=== PATIENT | male | born 1990 | race Caucasian/White ===

== ENCOUNTER → 2024-09-24 | Outpatient (CLI) | payer OTHER ==
--- NOTE | 2024-09-24 10:59 | US ---
EXAMINATION TYPE: US abdomen complete DATE OF EXAM: 09/24/2024 COMPARISON: NONE CLINICAL INDICATION: Male, 34 years old with history of B18.2 CHRON VIRAL HEP C; TECHNIQUE: Grayscale and color Doppler imaging of the abdomen was performed. FINDINGS: EXAM MEASUREMENTS: Liver Length: 15.6 cm Gallbladder Wall: 0.2 cm CBD: 0.5 cm, color Doppler imaging was utilized to isolate the common bile duct for measurement. Spleen: 12.3 cm Right Kidney: 11.1x5.8x6.5 cm Left Kidney: 12.1x5.9x5.5 cm WEATHER ANCHOR NOTES: very limited scan due to pt body habitus & overlying bowel Pancreas: Obscured by bowel gas Liver: Increased attenuation, decreased visualization of vessels suggestive of fatty infiltrate dif ficult to penetrate, intercostal views used Gallbladder: slightly obscured by bowel/rib shadow Evidence for sonographic Bradley's sign: No CBD: wnl Spleen: wnl Right Kidney: wnl, No hydronephrosis, calculi or masses seen Left Kidney: wnl, No hydronephrosis, calculi or masses seen Upper IVC: prox: wnl, not well visualized Abd Aorta: wnl as best visualized Heterogeneous hyperechoic appearance of the liver. This limits evaluation for focal masses. No ascite s. IMPRESSION: Suboptimal study. Heterogeneous hyperechoic appearance of liver is consistent with known hepatocellular disease. No ascites or biliary dilatation noted. [facility], , 09/24/2024 10:56 AM
== END | disposition home or self-care (01) ==
LOC: RADUSWWP 10:21 → EDSEX 10:30
PROVIDERS: ATTEND Family Medicine
DX: B18.2 Chronic viral hepatitis C (principal)
CPT/HCPCS: 76700

== ENCOUNTER → 2024-10-11 | Outpatient (CLI) | payer OTHER ==
[2024-10-11 15:17] LABS: Basophils # (A) 0.05 X 10*3/uL (0.00-0.10); Basophils % (A) 0.6 %; Eosinophils # (A) 0.05 X 10*3/uL (0.04-0.35); Eosinophils % (A) 0.6 %; HCT 46.4 % (39.6-50.0); HGB 16.3 g/dL (13.0-17.0); Lymphocytes # (A) 1.63 X 10*3/uL (0.90-5.00); Lymphocytes % (A) 20.6 %; MCH 32.2 pg (27.0-32.0); MCHC 35.1 g/dL (32.0-37.0); MCV 91.7 FL (80.0-97.0); Mean Platelet Volume 9.3 FL (9.5-12.2); Monocytes # (A) 0.64 X 10*3/uL (0.20-1.00); Monocytes % (A) 8.1 %; NRBC Per 100 WBC 0 X 10*3/uL (0.00-0.01); Neutrophils # (A) 5.51 X 10*3/uL (1.80-7.70); Neutrophils % (A) 69.7 %; Platelet Count 189 X 10*3/uL (140-440); RBC 5.06 X 10*6/uL (4.40-5.60); RDW 12.4 % (11.5-14.5); WBC 7.91 X 10*3/uL (4.50-10.00)
[2024-10-11 15:35] LABS: BUN/Creat Ratio 17.11 Ratio (12.00-20.00); Blood Urea Nitrogen 15.4 mg/dL (9.0-27.0); Chloride 104 mmol/L (96-109); Glucose 110 mg/dL (70-110); Potassium 4.4 mmol/L (3.5-5.5); Sodium 140 mmol/L (135-145)
[2024-10-11 15:36] LABS: ALT 129 U/L (10-49); AST 48 U/L (14-35); Albumin 4.6 g/dL (3.8-4.9); Albumin/Globulin Ratio 1.53 Ratio (1.60-3.17); Alkaline Phosphatase 66 U/L (41-126); Calcium 9.4 mg/dL (8.7-10.3); Carbon Dioxide 25.7 mmol/L (21.6-31.8); Total Bilirubin 0.5 mg/dL (0.3-1.2); Total Protein 7.6 g/dL (6.2-8.2)
[2024-10-11 15:47] LABS: Hepatitis B Surface Antigen Nonreactive (Nonreactive)
[2024-10-11 16:12] LABS: Hepatitis B Surface AB- Quant 3.5 mIU/mL
== END | disposition home or self-care (01) ==
LOC: LABWHC1 09:08
PROVIDERS: ATTEND Internal Medicine Gastroenterology
DX: B18.2 Chronic viral hepatitis C (principal)
CPT/HCPCS: 36415; 80053; 81596; 82105; 85025; 86706; 87340; 87522

== ENCOUNTER 2024-12-30 18:15 | Inpatient (IN) | payer OTHER ==
--- NOTE | 2024-12-30 19:25 | ED ---
General Adult HPI - General Source: patient Mode of arrival: wheelchair Limitations: no limitations <Eduardo Henson - Last Filed: 01/01/25 23:37> <Michelle Winn - Last Filed: 01/01/25 23:43> - General Chief complaint: Skin/Abscess/Foreign Body Stated complaint: Right Knee Issue Time Seen by Provider: 12/30/24 19:24 - History of Present Illness Initial comments: 34-year-old male presenting with chief complaint of redness pain and swelling to the right knee. 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 However he has been having worsening redness and swelling of the right knee ongoing for over 1 week now. He has had no drainage from the knee but there is a pustule forming. He has been on Bactrim for 4 days, the area of redness has improved, however the patient is still having very painful swelling over the kne e. No fever. (Eduardo Henson) - Related Data Home Medications Medication Instructions Recorded Confirmed Ibuprofen [Motrin Ib] 600 mg PO Q6H PRN 12/31/24 12/31/24 Sofosbuvir/Velpatasvir [Epclusa 1 tab PO DAILY@1200 12/31/24 12/31/24 400 mg-100 mg Tablet] Sulfamethox-Tmp 800-160Mg [Bactrim 1 tab PO Q12HR 12/31/24 12/31/24 DS 800-160 mg] Allergies Allergy/AdvReac Type Severity Reaction Status Date / Time No Known Allergies Allergy Verified 01/01/25 13:27 Review of Systems ROS Other: All systems not noted in ROS Statement are negative. <Eduardo Henson - Last Filed: 01/01/25 23:37> ROS Other: All systems not noted in ROS Statement are negative. <Michelle Winn - Last Filed: 01/01/25 23:43> ROS Statement: Those systems with pertinent positive or pertinent negative responses have been documented in the HPI. Past Medical History Additional Past Medical History / Comment(s): hep C History of Any Multi-Drug Resistant Organisms: None Reported Past Surgical History: Tonsillectomy Past Psychological History: No Psychological Hx Reported Smoking Status: Never smoker Past Alcohol Use History: Rare Past Drug Use History: Marijuana <Eduardo Henson - Last Filed: 01/01/25 23:37> General Exam Limitations: no limitations General appearance: alert, in no apparent distress Head exam: Present: atraumatic, normocephalic, normal inspection Eye exam: Present: normal appearance, EOMI Neck exam: Present: normal inspection. Absent: meningismus Respiratory exam: Absent: respiratory distress Cardiovascular Exam: Present: regular rate Right Knee exam: Present: tenderness, swelling, erythema, effusion. Absent: normal inspection Neurovascular tendon exam: Present: no vascular compromise Neurological exam: Present: alert, oriented X3 Psychiatric exam: Present: normal affect, normal mood <Eduardo Henson - Last Filed: 01/01/25 23:37> - General Exam Comments Initial Comments: Visual Physical Exam Vital signs reviewed General: Well-appearing, nontoxic, no acute distress. Head: Normocephalic, atraumatic Eyes: PERRLA, EOMI ENT: Airway patent Chest: Nonlabored breathing Skin: No visual rash, normal skin tone Neuro: Alert and oriented 3 Musculoskeletal: No gross abnormalities (Eduardo Henson) Course Vital Signs 12/30/24 12/30/24 12/31/24 18:24 22:55 02:09 Temperature 97.8 F 99.0 F Pulse Rate 148 H 108 H 91 Respiratory 18 18 18 Rate Blood Pressure 160/101 128/83 146/93 O2 Sat by Pulse 97 98 97 Oximetry 12/31/24 12/31/24 12/31/24 06:37 07:15 10:30 Temperature 98.5 F 97.3 F L Pulse Rate 78 87 96 Respiratory 18 18 16 Rate Blood Pressure 138/89 144/84 148/88 O2 Sat by Pulse 99 100 Oximetry Medical Decision Making - Lab Data Result diagrams: 01/01/25 06:17 01/01/25 06:17 <Eduardo Henson - Last Filed: 01/01/25 23:37> - Lab Data Result diagrams: 01/01/25 06:17 01/01/25 06:17 <Michelle Winn - Last Filed: 01/01/25 23:43> - Medical Decision Making I performed the quick note portion of this visit, electronically signed Eduardo Henson PA-C Was pt. sent in by a medical professional or institution (SONAM Ahuja, CERTIFIED INDOOR ENVIRONMENTALIST, urgent care, hospital, or usp...) When possible be specific @ -No Did you speak to anyone other than the patient for history (EMS, parent, family, police, friend...)? What history was obtained from this source @ -No Did you review nursing and triage notes (agree or disagree)? Why? @ -I reviewed and agree with nursing and triage notes Were old charts reviewed (outside hosp., previous admission, EMS record, old E KG, old radiological studies, urgent care reports/EKG's, usp records)? Report findings @ -No old charts were reviewed Differential Diagnosis (chest pain, altered mental status, abdominal pain women, abdominal pain men, vaginal bleeding, weakness, fever, dyspnea, syncope, headache, dizziness, GI bleed, back pain, seizure, CVA, palpatations, mental health, musculoskeletal)? @ -Differential Musculoskeletal Muscular strain, contusion, ligament sprain, fracture, arthritis, septic arthrit is, bursitis, cellulitis, muscle spasm, nerve compression, DVT, arterial occlusion, herpes zoster, electrolyte abnormality, tumor.... This is not meant to be in all inclusive list EKG interpreted by me (3pts min.). @ -As above X-rays interpreted by me (1pt min.). @ -X-ray shows no acute osseous pathology. Prepatellar/anterior knee soft tissue swelling. Trace suprapatellar joint effusion is also suggested CT interpreted by me (1pt min.). @ -None done U/S interpreted by me (1pt. min.). @ -None done What testing was considered but not performed or refused? (CT, X-rays, U/S, labs)? Why? @ -None What meds were considered but not given or refused? Why? @ -None Did you discuss the management of the patient with other professionals (professionals i.e. SONAM Ahuja, CERTIFIED INDOOR ENVIRONMENTALIST, lab, RT, psych nurse, social work instructor, senior android software engineer, teacher, front desk officer, disease case manager)? Give summary @ -[facility]oke [facility] from [facility], advises attempting to drain the area. If incision is successful the patient can follow-up in the office, if not he can be admitted to medicine with surgery on consult. Spoke with Dr. Crocker from [facility] who accepts admission Was smoking cessation discussed for >3mins.? @ -No Was critical care preformed (if so, how long)? @ -No Were there social determinants of health that impacted care today? How? (Homelessness, low income, unemployed, alcoholism, drug addiction, transportation, low edu. Level, literacy, decrease access to med. care, care home, rehab)? @ -No Was there de-escalation of care discussed even if they declined (Discuss DNR or withdrawal of care, Hospice)? DNR status @ -No What co-morbidities impacted this encounter? (DM, HTN, Smoking, COPD, CAD, Cancer, CVA, ARF, Chemo, Hep., AIDS, mental health diagnosis, sleep apnea, morbid obesity)? @ -None Was patient admitted / discharged? Hospital course, mention meds given and route, prescriptions, significant lab abnormalities, going to OR and other pertinent info. @ -34-year-old male presenting with chief complaint of increased redness swelling and tenderness to the right knee. Patient has a large septic prepat ellar bursitis. He has been on Bactrim for 4 days. There is a pustule over the knee. White count 17.29. CRP 19.8. Knee x-rays shows soft tissue prepatellar swelling. Patient is started on Unasyn and vancomycin. I spoke with Gail from [facility], inquired if I should attempt to drain and she confirmed yes. I did attempt to drain, was able to drain a small amount of pus but there was no significant relief. Culture was sent. Patient will be admitted for IV antibiotics and evaluation by orthopedics. Patient is agreeable with this plan. I discussed this case with my attending Dr. Winn Undiagnosed new problem with uncertain prognosis? @ -No Drug Therapy requiring intensive monitoring for toxicity (Heparin, Nitro, Insulin, Cardizem)? @ -No Were any procedures done? @ -No Diagnosis/symptom? @ -Septic prepatellar bursitis Acute, or Chronic, or Acute on Chronic? @ -Acute Uncomplicated (without systemic symptoms) or Complicated (systemic symptoms)? @ -Complicated Side effects of treatment? @ -No Exacerbation, Progression, or Severe Exacerbation? @ -No Poses a threat to life or bodily function? How? (Chest pain, [place], [place], pneumonia, PE, COPD, DKA, ARF, appy, cholecystitis, CVA, Diverticulitis, Homicidal, Suicidal, threat to staff... and all critical care pts) @ -Yes (Eduardo Henson) - Lab Data Lab Results 12/30/24 12/30/24 Range/Units 21:38 21:38 WBC 17.29 H (4.50-10.00) 10*3/uL RBC 4.54 (4.40-5.60) 10*6/uL Hgb 14.7 (13.0-17.0) g/dL Hct 40.5 (39.6-50.0) % MCV 89.2 (80.0-97.0) fL MCH 32.4 H (27.0-32.0) pg MCHC 36.3 (32.0-37.0) g/dL Plt Count 197 (140-440) 10*3/uL MPV 9.0 L (9.5-12.2) fL Immature Gran % (Auto) 0.5 % Neutrophils % 85.0 % Lymphocytes % 6.8 % Monocytes % 7.3 % Eosinophils % 0.1 % Basophils % 0.3 % Immature Gran # 0.09 H (0.00-0.04) 10*3/uL Neutrophils # 14.68 H (1.80-7.70) 10*3/uL Lymphocytes # 1.18 (0.90-5.00) 10*3/uL Monocytes # 1.27 H (0.20-1.00) 10*3/uL Eosinophils # 0.01 L (0.04-0.35) 10*3/uL Basophils # 0.06 (0.00-0.10) 10*3/uL ESR 58 H (0-15) mm/Hr Sodium 136 L (137-145) mmol/L Potassium 4.3 (3.5-5.1) mmol/L Chloride 98 (98-107) mmol/L Carbon Dioxide 24 (22-30) mmol/L Anion Gap 14 mmol/L BUN 14 (9-20) mg/dL Creatinine 0.77 (0.66-1.25) mg/dL Est GFR (CKD-EPI)AfAm >90 (>60 ml/min/1.73 sqM) Est GFR (CKD-EPI)NonAf >90 (>60 ml/min/1.73 sqM) Glucose 103 H (74-99) mg/dL Calcium 9.2 (8.4-10.2) mg/dL Total Bilirubin 0.9 (0.2-1.3) mg/dL AST 33 (17-59) U/L ALT 44 (4-49) U/L Alkaline Phosphatase 94 (38-126) U/L C-Reactive Protein 19.8 H (<1.0) mg/dL Total Protein 7.9 (6.3-8.2) g/dL Albumin 4.3 (3.5-5.0) g/dL Disposition Time of Disposition: 22:46 <Eduardo Henson - Last Filed: 01/01/25 23:37> <Michelle Winn - Last Filed: 01/01/25 23:43> Clinical Impression: Septic prepatellar bursitis Disposition: ADMITTED IP TO THIS HOSP Condition: Fair
[2024-12-30 21:44] LABS: Basophils # (A) 0.06 10*3/uL (0.00-0.10); Basophils % (A) 0.3 %; Eosinophils # (A) 0.01 10*3/uL (0.04-0.35); Eosinophils % (A) 0.1 %; HCT 40.5 % (39.6-50.0); HGB 14.7 g/dL (13.0-17.0); Lymphocytes # (A) 1.18 10*3/uL (0.90-5.00); Lymphocytes % (A) 6.8 %; MCH 32.4 pg (27.0-32.0); MCHC 36.3 g/dL (32.0-37.0); MCV 89.2 fL (80.0-97.0); Monocytes # (A) 1.27 10*3/uL (0.20-1.00); Monocytes % (A) 7.3 %; Neutrophils # (A) 14.68 10*3/uL (1.80-7.70); Neutrophils % (A) 85.0 %; Platelet Count 197 10*3/uL (140-440); RBC 4.54 10*6/uL (4.40-5.60); RDW 11.6 % (11.5-14.5); WBC 17.29 10*3/uL (4.50-10.00)
[2024-12-30] MEDS ORDERED: VANCOMYCIN IV PER PHARMACY 1 EACH MISC MISCELLANE PRN (21:47)
[2024-12-30 21:58] LABS: ALT 44 U/L (4-49); AST 33 U/L (17-59); African American GFR (CKD) >90 (>60 ml/min/1.73 sqM); Albumin 4.3 g/dL (3.5-5.0); Alkaline Phosphatase 94 U/L (38-126); Anion Gap 14 mmol/L; Blood Urea Nitrogen 14 mg/dL (9-20); Calcium 9.2 mg/dL (8.4-10.2); Carbon Dioxide 24 mmol/L (22-30); Chloride 98 mmol/L (98-107); Glucose 103 mg/dL (74-99); Non-African American GFR(CKD) >90 (>60 ml/min/1.73 sqM); Potassium 4.3 mmol/L (3.5-5.1); Sodium 136 mmol/L (137-145); Total Protein 7.9 g/dL (6.3-8.2)
[2024-12-30] MEDS: MORPHINE SULFATE 4 MG/ML SYRINGE IVP PRN (22:10)
[2024-12-30] MEDS: AMPICILLIN-SULBACTAM 3 GM in SODIUM CHLORIDE 0.9% 100 ML IVPB STA (22:13)
--- NOTE | 2024-12-30 22:32 | XR ---
EXAMINATION TYPE: XR knee complete RT DATE OF EXAM: 12/30/2024 7:52 PM CLINICAL INDICATION:Male, 34 years old with history of infection; PHH, pain COMPARISON: None. TECHNIQUE: XR knee complete RT; examined in Frontal, lateral and oblique projections. FINDINGS: No evidence of any acute osseous pathology. Trace suprapatellar joint effusion is suggest ed. Infrapatellar and anterior right knee soft tissue swelling. IMPRESSION: No acute osseous pathology. Prepatellar/anterior knee soft tissue swelling. Trace suprapatellar joint effusion is also suggested. [facility], , 12/30/2024 10:30 PM
[2024-12-30] MEDS ORDERED: NALOXONE 0.4 MG/ML 1 ML VIAL IV PRN (22:43)
[2024-12-30] MEDS: KETOROLAC 15 MG/ML 1 ML VIAL IVP PRN (23:00)
[2024-12-30] MEDS: VANCOMYCIN 2,500 MG in SODIUM CHLORIDE 0.9% 500 ML 500 ML IVPB ONE (23:03)
[2024-12-31] MEDS ORDERED: KETOROLAC 15 MG/ML 1 ML VIAL IVP SCH
[2024-12-31] MEDS: SODIUM CHLORIDE 0.9% 1,000 ML IV SCH (05:07)
[2024-12-31] MEDS: VANCOMYCIN 2,000 MG in SODIUM CHLORIDE 0.9% 500 ML 500 ML IVPB SCH (08:32)
[2024-12-31 09:05] LABS: Basophils # (A) 0.05 10*3/uL (0.00-0.10); Basophils % (A) 0.3 %; Eosinophils # (A) 0.05 10*3/uL (0.04-0.35); Eosinophils % (A) 0.3 %; HCT 36.9 % (39.6-50.0); HGB 13.0 g/dL (13.0-17.0); Lymphocytes # (A) 1.38 10*3/uL (0.90-5.00); Lymphocytes % (A) 8.2 %; MCH 31.7 pg (27.0-32.0); MCHC 35.2 g/dL (32.0-37.0); MCV 90.0 fL (80.0-97.0); Monocytes # (A) 1.45 10*3/uL (0.20-1.00); Monocytes % (A) 8.6 %; Neutrophils # (A) 13.88 10*3/uL (1.80-7.70); Neutrophils % (A) 82.0 %; Platelet Count 196 10*3/uL (140-440); RBC 4.10 10*6/uL (4.40-5.60); RDW 11.7 % (11.5-14.5); WBC 16.91 10*3/uL (4.50-10.00)
[2024-12-31 09:40] LABS: ALT 34 U/L (4-49); AST 22 U/L (17-59); African American GFR (CKD) >90 (>60 ml/min/1.73 sqM); Albumin 3.6 g/dL (3.5-5.0); Albumin/Globulin Ratio 1.2; Alkaline Phosphatase 88 U/L (38-126); Anion Gap 8 mmol/L; Blood Urea Nitrogen 11 mg/dL (9-20); Calcium 8.3 mg/dL (8.4-10.2); Carbon Dioxide 28 mmol/L (22-30); Chloride 101 mmol/L (98-107); Globulin 3.1 g/dL; Glucose 107 mg/dL (74-99); Non-African American GFR(CKD) >90 (>60 ml/min/1.73 sqM); Potassium 3.9 mmol/L (3.5-5.1); Sodium 137 mmol/L (137-145); Total Protein 6.7 g/dL (6.3-8.2)
[2024-12-31] MEDS: HYDROcodone/APAP 5-325MG 1 EACH TAB PO PRN (13:50)
--- NOTE | 2024-12-31 16:12 | P.CNOR ---
History of Present Illness - [facility] Consult date: 12/31/24 Consult reason: other (Right knee prepatellar bursitis) History of present illness: Patient is evaluated at bedside in the emergency room today, orthopedic team was consulted for likely right knee prepatellar bursitis. patient states that the symptoms started over a week ago after kneeling on something he thinks, he does do april. Patient had seen his primary care doctor who did prescribe oral antibiotics, the symptoms did not significantly improved. Patient came into the ER on 12/30/2024 for evaluation, patient had labs and imaging test done. There was concern for a septic prepatellar bursitis, they did do an I&D type procedure in the emergency room where cultures were taken. At bedside today patient was resting comfortably, he notes pain and discomfort when he tries to move the knee mainly with deep flexion. Besides kneeling on a daily basis he cannot remember any specific trauma. He denies any previous surgery to the right knee. Patient denies any fevers or chills at this time. Patient was started on IV antibiotics upon arrival to the emergency room. Review of Systems Constitutional: Reports as per [facility] Past Medical History Additional Past Medical History / Comment(s): hep C History of Any Multi-Drug Resistant Organisms: None Reported Past Surgical History: Tonsillectomy Past Psychological History: No Psychological Hx Reported Smoking Status: Never smoker Past Alcohol Use History: Rare Past Drug Use History: Marijuana Medications and Allergies Home Medications Medication Instructions Recorded Confirmed Type Ibuprofen [Motrin Ib] 600 mg PO Q6H PRN 12/31/24 12/31/24 History Sofosbuvir/Velpatasvir [Epclusa 1 tab PO DAILY@1200 12/31/24 12/31/24 History 400 mg-100 mg Tablet] Sulfamethox-Tmp 800-160Mg [Bactrim 1 tab PO Q12HR 12/31/24 12/31/24 History DS 800-160 mg] Allergies Allergy/AdvReac Type Severity Reaction Status Date / Time No Known Allergies Allergy Verified 12/31/24 09:19 Physical Examination Right lower extremity: Obvious erythema is noted to the medial, lateral and anterior knee that also distends into the anterior munoz. There is a wound present in the prepatellar region that is draining purulent material. Patient's range of motion is intact, he does notice discomfort with deep flexion. The compartments of the lower leg and upper leg are soft and compressible. Calf is soft, no tenderness with palpation. Plantarflexion, dorsiflexion, EHL, FHL are intact. Sensory exam to light touch is intact throughout the extremity, dorsalis pedis pulses 2+ Results - Labs Labs: Abnormal Lab Results - Last 24 Hours (Table) 12/30/24 12/30/24 12/31/24 Range/Units 21:38 21:38 08:51 WBC 17.29 H 16.91 H (4.50-10.00) 10*3/uL RBC 4.10 L (4.40-5.60) 10*6/uL Hct 36.9 L (39.6-50.0) % MCH 32.4 H (27.0-32.0) pg MPV 9.0 L 8.6 L (9.5-12.2) fL Immature Gran # 0.09 H 0.10 H (0.00-0.04) 10*3/uL Neutrophils # 14.68 H 13.88 H (1.80-7.70) 10*3/uL Monocytes # 1.27 H 1.45 H (0.20-1.00) 10*3/uL Eosinophils # 0.01 L (0.04-0.35) 10*3/uL ESR 58 H (0-15) mm/Hr Sodium 136 L (137-145) mmol/L Glucose 103 H (74-99) mg/dL Calcium (8.4-10.2) mg/dL C-Reactive Protein 19.8 H (<1.0) mg/dL 12/31/24 Range/Units 08:51 WBC (4.50-10.00) 10*3/uL RBC (4.40-5.60) 10*6/uL Hct (39.6-50.0) % MCH (27.0-32.0) pg MPV (9.5-12.2) fL Immature Gran # (0.00-0.04) 10*3/uL Neutrophils # (1.80-7.70) 10*3/uL Monocytes # (0.20-1.00) 10*3/uL Eosinophils # (0.04-0.35) 10*3/uL ESR (0-15) mm/Hr Sodium (137-145) mmol/L Glucose 107 H (74-99) mg/dL Calcium 8.3 L (8.4-10.2) mg/dL C-Reactive Protein (<1.0) mg/dL Microbiology - Last 24 Hours (Table) 12/30/24 22:35 Gram Stain - Preliminary Knee - Right H & H 12/30/24 12/31/24 Range/Units 21:38 08:51 Hgb 14.7 13.0 (13.0-17.0) g/dL Hct 40.5 36.9 L (39.6-50.0) % Result Diagrams: 12/31/24 08:51 12/31/24 08:51 - Diagnostic results Knee x-ray: report reviewed, image reviewed (Report images reviewed of the right knee x-rays, no acute fractures or dislocations, no obvious foreign bodies ap preciated) Assessment and Plan Assessment: Right knee septic prepatellar bursitis Right knee cellulitis Plan: I was able to discuss the case, this to include physical exam findings and imaging studies my attending Dr. Fonseca. We are recommending surgical intervention, more specifically an incision and drainage with irrigation and debridement of the right knee prepatellar bursa. Surgery was scheduled for 01/01/2025 Risk and benefits of the surgery were discussed with the patient at bedside, this to include but not exclude infection, blood loss, neurovascular injury, development of blood clots, and adequate resolution of symptoms, need for further surgery. Patient is a good understanding would like to proceed. Consent will be obtained prior to procedure N.p.o. after midnight Pain control, oral and IV medication as needed Monitor current dressing that is over wound Infectious disease was consulted for recommendations Medical recommendations appreciated DVT prophylaxis, subcu medication after surgery recommended Further recommendations to follow Time with Patient: Less than 30
--- NOTE | 2024-12-31 17:38 | P.HPIM ---
History of Present Illness H&P Date: 12/31/24 Chief Complaint: Right knee pain History of present illness; 34-year-old male presents with complaints of right knee pain and swelling. 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 States he usually wears kneepads but every now and then he does not because he gets uncomfortable. Reports he went to urgent care approximately 4 days ago received Bactrim and was taking that but did not notice much of a change in the swelling or tenderness of the right knee. Since then days ago he noticed increased swelling consistently every day until yesterday he noticed 2 bumps appear on his knee and his knee became overwhelmingly tender to where he wanted come to the ER for further evaluation. While in the ER patient underwent lab work significant for white count of 17.29, neutrophils of 14.68, sodium 136, CRP 19.8, otherwise lab work within normal limits. Patient also received a right knee x-ray which showed no acute osseous pathology but did show prepatellar/anterior knee soft tissue swelling and trace suprapatellar patellar joint effusion. REVIEW OF SYSTEMS: As stated above in HPI. The rest of the 14-point review of systems is negative. PHYSICAL EXAMINATION: GENERAL: The patient is alert and oriented x3, not in any acute distress. Well developed, well nourished. HEENT: Pupils are round and equally reacting to light. EOMI. No scleral icterus. No conjunctival pallor. Normocephalic, atraumatic. CARDIOVASCULAR: S1 and S2 present. No murmurs, rubs, or gallops. PULMONARY: Chest is clear to auscultation b/l, no wheezing or crackles. ABDOMEN: Soft, nontender, nondistended, normoactive bowel sounds. No palpable organomegaly. MUSCULOSKELETAL: No joint swelling or deformity. EXTREMITIES: No cyanosis, clubbing, or pedal edema. Significant erythema tenderness and warmth appreciated in the anterior medial and lateral knee with multiple scabs appreciated. Wound appreciated in the prepatellar region with draining purulent material. Range of motion intact but there is significant discomfort with deep flexion. NEUROLOGICAL: Gross neurological examination did not reveal any focal deficits. Assessment and Plan #Septic prepatellar bursitis of the right knee - Continue vancomycin - Wound culture ordered - Ortho recommended incision and drainage to be performed tomorrow in the OR - Patient will be n.p.o. after midnight - ID consulted appreciate further recommendations - Continue NS 75 cc/h - As needed oral and IV pain medication ordered - Monitor vitals #History of hep C: - Continue Epclusa 609270 daily #Hypocalcemia: - Calcium 9.2 now 8.3 - Continue to monitor F: NS 75 cc/h E: None N: N.p.o. after midnight DVT ppx: SCDs GI ppx: None CODE STATUS: Full code Dispo: Pending course Flavia Perez MD PGY-2 FM Dictation was produced using [email or web address] dictation software. please excuse any grammatical, word or spelling errors. Attestation I have seen and examined this patient with my resident , discussed the same with the resident/RDAHA, and agree with the dictator's assessment and plan as written Dr. Isma martinez Past Medical History Additional Past Medical History / Comment(s): hep C History of Any Multi-Drug Resistant Organisms: None Reported Past Surgical History: Tonsillectomy Past Psychological History: No Psychological Hx Reported Smoking Status: Never smoker Past Alcohol Use History: Rare Past Drug Use History: Marijuana Medications and Allergies Home Medications Medication Instructions Recorded Confirmed Type Ibuprofen [Motrin Ib] 600 mg PO Q6H PRN 12/31/24 12/31/24 History Sofosbuvir/Velpatasvir [Epclusa 1 tab PO DAILY@1200 12/31/24 12/31/24 History 400 mg-100 mg Tablet] Sulfamethox-Tmp 800-160Mg [Bactrim 1 tab PO Q12HR 12/31/24 12/31/24 History DS 800-160 mg] Allergies Allergy/AdvReac Type Severity Reaction Status Date / Time No Known Allergies Allergy Verified 12/31/24 09:19 Physical Exam Vitals: Vital Signs Temp Pulse Resp BP Pulse Ox 12/31/24 07:15 97.3 F L 87 18 144/84 100 12/31/24 06:37 98.5 F 78 18 138/89 99 12/31/24 02:09 91 18 146/93 97 12/30/24 22:55 99.0 F 108 H 18 128/83 98 12/30/24 18:24 97.8 F 148 H 18 160/101 97 Intake and Output 12/30/24 12/31/24 12/31/24 22:59 06:59 14:59 Other: Weight 118.388 kg Results CBC & Chem 7: 01/01/25 06:17 01/01/25 06:17 Labs: Abnormal Lab Results - Last 24 Hours (Table) 12/30/24 12/30/24 Range/Units 21:38 21:38 WBC 17.29 H (4.50-10.00) 10*3/uL MCH 32.4 H (27.0-32.0) pg MPV 9.0 L (9.5-12.2) fL Immature Gran # 0.09 H (0.00-0.04) 10*3/uL Neutrophils # 14.68 H (1.80-7.70) 10*3/uL Monocytes # 1.27 H (0.20-1.00) 10*3/uL Eosinophils # 0.01 L (0.04-0.35) 10*3/uL ESR 58 H (0-15) mm/Hr Sodium 136 L (137-145) mmol/L Glucose 103 H (74-99) mg/dL C-Reactive Protein 19.8 H (<1.0) mg/dL
[2025-01-01] MEDS: VANCOMYCIN TROUGH DUE 1 EACH MISC MISCELLANE ONE (06:31)
[2025-01-01 07:02] LABS: African American GFR (CKD) >90 (>60 ml/min/1.73 sqM); Anion Gap 6 mmol/L; Blood Urea Nitrogen 10 mg/dL (9-20); Calcium 8.7 mg/dL (8.4-10.2); Carbon Dioxide 30 mmol/L (22-30); Chloride 105 mmol/L (98-107); Glucose 96 mg/dL (74-99); Non-African American GFR(CKD) >90 (>60 ml/min/1.73 sqM); Potassium 4.5 mmol/L (3.5-5.1); Sodium 141 mmol/L (137-145)
--- NOTE | 2025-01-01 07:15 | P.CONS ---
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 Subsequently developed a small area on the right knee Area about a week ago for the patient has been evaluated by his PCP and the patient has been started on Bactrim DS which the patient has taken for about 4 days however the patient noticed to have worsening swelling redness of the right knee area patient described the pain to be sharp moderate to severe intensity with associated swelling redness and did have some drainage with the send the patient has been evaluated on presentation to the hospital patient was afebrile and no fever have recorded subsequently patient was mildly tachycardic but not hypotensive or hypoxic did have a white count of 17.29 with a left shift creatinine is normal electrolytes are normal liver enzymes normal patient did have blood and local cultures obtained knee x-ray no bony normality prepatellar anterior knee soft tissue swelling trace suprapatellar joint effusion also noticed patient was started on vancomycin infectious disease was consulted for further management of antibiotic therapy Review of Systems Positive point and negatives has been mentioned in the HPI, complete review of systems was performed and all other systems are negative Past Medical History Additional Past Medical History / Comment(s): hep C History of Any Multi-Drug Resistant Organisms: None Reported Past Surgical History: Tonsillectomy Past Psychological History: No Psychological Hx Reported Smoking Status: Never smoker Past Alcohol Use History: Rare Past Drug Use History: Marijuana Medications and Allergies Home Medications Medication Instructions Recorded Confirmed Type Ibuprofen [Motrin Ib] 600 mg PO Q6H PRN 12/31/24 12/31/24 History Sofosbuvir/Velpatasvir [Epclusa 1 tab PO DAILY@1200 12/31/24 12/31/24 History 400 mg-100 mg Tablet] HYDROcodone/APAP 5-325MG [[place] 1 each PO Q6HR PRN 3 Days #12 tab 01/02/25 Rx 5-325] ceFAZolin [Kefzol] 3 gm IVP Q8HR #30 each 01/02/25 Rx Allergies Allergy/AdvReac Type Severity Reaction Status Date / Time No Known Allergies Allergy Verified 01/01/25 13:27 Physical Exam Vitals: Vital Signs Temp Pulse Resp BP Pulse Ox 12/31/24 10:30 96 16 148/88 12/31/24 07:15 97.3 F L 87 18 144/84 100 12/31/24 06:37 98.5 F 78 18 138/89 99 12/31/24 02:09 91 18 146/93 97 12/30/24 22:55 99.0 F 108 H 18 128/83 98 12/30/24 18:24 97.8 F 148 H 18 160/101 97 Intake and Output 12/30/24 12/31/24 12/31/24 22:59 06:59 14:59 Other: Weight 118.388 kg GENERAL DESCRIPTION: Middle-age male lying in bed, no distress. No tachypnea or accessory muscle of respiration use. HEENT: Shows Pallor , no scleral icterus. Oral mucous membrane is dry. NECK: Trachea central, no thyromegaly. LUNGS: Unlabored breathing. Clear to auscultation anteriorly. No wheeze or crackle. HEART: S1, S2, regular rate and rhythm. No loud murmur ABDOMEN: Soft, no tenderness , guarding or rigidity, no organomegaly EXTREMITIES: Right knee with swelling and redness open wound and drainage SKIN: No rash, no masses palpable. NEUROLOGICAL: The patient is awake, alert, oriented x3, mood and affect normal. Results CBC & Chem 7: 01/02/25 04:34 01/02/25 04:34 Labs: Abnormal Lab Results - Last 24 Hours (Table) 12/30/24 12/30/24 12/31/24 Range/Units 21:38 21:38 08:51 WBC 17.29 H 16.91 H (4.50-10.00) 10*3/uL RBC 4.10 L (4.40-5.60) 10*6/uL Hct 36.9 L (39.6-50.0) % MCH 32.4 H (27.0-32.0) pg MPV 9.0 L 8.6 L (9.5-12.2) fL Immature Gran # 0.09 H 0.10 H (0.00-0.04) 10*3/uL Neutrophils # 14.68 H 13.88 H (1.80-7.70) 10*3/uL Monocytes # 1.27 H 1.45 H (0.20-1.00) 10*3/uL Eosinophils # 0.01 L (0.04-0.35) 10*3/uL ESR 58 H (0-15) mm/Hr Sodium 136 L (137-145) mmol/L Glucose 103 H (74-99) mg/dL Calcium (8.4-10.2) mg/dL C-Reactive Protein 19.8 H (<1.0) mg/dL 12/31/24 Range/Units 08:51 WBC (4.50-10.00) 10*3/uL RBC (4.40-5.60) 10*6/uL Hct (39.6-50.0) % MCH (27.0-32.0) pg MPV (9.5-12.2) fL Immature Gran # (0.00-0.04) 10*3/uL Neutrophils # (1.80-7.70) 10*3/uL Monocytes # (0.20-1.00) 10*3/uL Eosinophils # (0.04-0.35) 10*3/uL ESR (0-15) mm/Hr Sodium (137-145) mmol/L Glucose 107 H (74-99) mg/dL Calcium 8.3 L (8.4-10.2) mg/dL C-Reactive Protein (<1.0) mg/dL Assessment and Plan (1) Leukocytosis Current Visit: Yes Status: Acute Code(s): D72.829 - ELEVATED WHITE BLOOD CELL COUNT, UNSPECIFIED SNOMED Code(s): 505980228 (2) Failure of outpatient treatment Current Visit: Yes Status: Acute Code(s): Z78.9 - OTHER SPECIFIED HEALTH STATUS SNOMED Code(s): 972373378 (3) Septic prepatellar bursitis Current Visit: Yes Status: Acute Code(s): M71.169 - OTHER INFECTIVE BURSITIS, UNSPECIFIED KNEE SNOMED Code(s): 05184065 Plan: 1patient presented hospital with right knee pain swelling and redness and drainage in this patient has been diagnosed with a septic right knee prepatellar bursitis likely from gram-positive skin tyler such as Staph aureus failing outpatient Bactrim DS therapy 2-blood and local culture has been obtained 3-patient has been evaluated by orthopedics planning for I&D and deep culture 4-we will treat the patient with vancomycin pharmacy to dose while waiting for the culture to finalize Question concern answered We will follow on clinical condition and cultures to further adjust medication if needed Thank you for this consultation we will follow the patient along with you Dictation was produced using [employer] dictation software. please excuse any grammatical, word or spelling errors. Time with Patient: Greater than 30
[2025-01-01 07:54] LABS: Basophils # (A) 0.07 10*3/uL (0.00-0.10); Basophils % (A) 0.7 %; Eosinophils # (A) 0.12 10*3/uL (0.04-0.35); Eosinophils % (A) 1.2 %; HCT 37.4 % (39.6-50.0); HGB 12.9 g/dL (13.0-17.0); Lymphocytes # (A) 1.26 10*3/uL (0.90-5.00); Lymphocytes % (A) 12.4 %; MCH 31.6 pg (27.0-32.0); MCHC 34.5 g/dL (32.0-37.0); MCV 91.7 fL (80.0-97.0); Monocytes # (A) 0.91 10*3/uL (0.20-1.00); Monocytes % (A) 8.9 %; Neutrophils # (A) 7.66 10*3/uL (1.80-7.70); Neutrophils % (A) 75.3 %; Platelet Count 202 10*3/uL (140-440); RBC 4.08 10*6/uL (4.40-5.60); RDW 11.6 % (11.5-14.5); WBC 10.17 10*3/uL (4.50-10.00)
--- NOTE | 2025-01-01 08:46 | P.PN ---
Progress Note - Text Progress Note Date: 01/01/25 Patient seen this morning. Patient has remained n.p.o. since midnight. Dressing to the right knee is intact. Patient denies any questions or concerns prior to scheduled procedure later today. Informed patient that he will see Dr. Fonseca in preop area if he has any questions or concerns.
[2025-01-01] MEDS: IV FLUID CONTINUATION 1,000 ML IV ONE ×3 (13:20→15:38)
[2025-01-01] MEDS ORDERED: fentaNYL (PF) 50 MCG/ML 2 ML AMP ONE (13:50)
[2025-01-01] MEDS ORDERED: MIDAZOLAM 2 MG/2 ML VIAL ONE (13:50)
[2025-01-01] MEDS ORDERED: LIDOCAINE 1% INJ 10MG/ML (20 ML MDV) ONE (13:50)
[2025-01-01] MEDS ORDERED: SUCCINYLCHOLINE CHLORIDE 200 MG/10 ML VIAL IV ONE (13:50)
[2025-01-01] MEDS ORDERED: PROPOFOL 10 MG/ML 20 ML VIAL IV ONE (13:50)
--- NOTE | 2025-01-01 14:38 | P.OP ---
Date of Procedure: 01/01/25 Preoperative Diagnosis: Septic right knee prepatellar bursitis Postoperative Diagnosis: Same Procedure(s) Performed: Incision and drainage/irrigation and debridement right knee septic prepatellar bursitis Anesthesia: ISRA Surgeon: Jeremy Fonseca Area Intelligence Technician #1: Ryan Koenig Estimated Blood Loss (ml): 10 Pathology: other (Cultures/Gram stain) Condition: stable Disposition: PACU Indications for Procedure: Patient is a 34-year-old male who presents with a 1 week history of progressive right knee swelling and warmth. Clinically he has evidence of septic right knee prepatellar bursitis. A discussion of the risks and benefits of operative intervention was made with the patient. He opted to proceed. Operative risks include persistence of infection and possible need for subsequent procedures was discussed. Informed consent was obtained. Operative Findings: As below Description of Procedure: The patient was brought to the operating room, and after induction of general anesthesia the right lower extremity was prepped and draped in normal fashion. The tourniquet was inflated to 270 mmHg. A 5 cm incision was then made starting at the inferior pole patella extending to the medial aspect of the tibial tubercle. Skin was incised sharply. Subcutaneous tissues were divided sharply. Electrocautery was used for hemostasis. A moderate amount of purulent material was encountered. Deep cultures were obtained. The bursal tissue it was then excised sharply with a scalpel down to the level of the patellar tendon. Copious irrigation was then performed with pulsatile lavage. A Letty drain w as left in place. The skin was reapproximated with simple 3-0 nylon sutures. A sterile dressing was then applied. The tourniquet was deflated less than 30 minutes total tourniquet time. The patient was then awoken from general anesthesia and transferred to recovery room in good condition. Blood loss is estimated 10 cc. No complications were incurred. Sponge and needle counts were correct at the end the case. Ryan MASTERS assisted during the major complex the case to include positioning, exposure, irrigation and debridement, and closure.
[2025-01-01] MEDS ORDERED: HYDROmorphone 0.5 MG/0.5 ML SYRINGE IVP PRN (14:41)
[2025-01-01] MEDS ORDERED: MAGNESIUM HYDROXIDE 2,400 MG/30 ML CUP PO PRN (14:41)
[2025-01-01] MEDS ORDERED: NALOXONE 0.4 MG/ML 1 ML VIAL IV PRN (14:41)
[2025-01-01] MEDS ORDERED: hydrOXYzine HCL 25 MG TAB PO PRN (14:41)
[2025-01-01] MEDS: HYDROmorphone 0.5 MG/0.5 ML SYRINGE IVP PRN (14:56)
[2025-01-01] MEDS: LACTATED RINGERS 1,000 ML IV SCH (15:01)
[2025-01-01] MEDS: [UNRECOGNIZED DRUG - OTHER] PO SCH (16:23)
[2025-01-01] MEDS: HYDROcodone/APAP 7.5-325MG 1 EACH TAB PO PRN (16:51)
--- NOTE | 2025-01-01 16:53 | P.PN ---
Subjective Subjective: History of present illness; 34-year-old male presents with complaints of right knee pain and swelling. 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 States he usually wears kneepads but every now and then he does not because he gets uncomfortable. Reports he went to urgent care approximately 4 days ago received Bactrim and was taking that but did not notice much of a change in the swelling or tenderness of the right knee. Since then days ago he noticed increased swelling consistently every day until yesterday he noticed 2 bumps appear on his knee and his knee became overwhelmingly tender to where he wanted come to the ER for further evaluation. 01/01. Patient seen at bedside. Currently n.p.o. for I&D procedure by orthopedics today. Reported reduced right knee pain since last night post spontaneous drainage of site. No significant overnight events. No acute concerns. Pertinent positives and negatives discussed above, a complete review of systems was preformed and all the other sytems were negative. Vitals Signs Reveiwed. Temperature 97.9 F, heart rate 76, respirate 16, blood pressure 143/89, SpO2 97 on room air. General: non toxic, no distress, appears at stated age, normal weight Derm: no unusual rashes/lesions, warm Head: atraumatic, normocephalic, symmetric Eyes: EOMI, no lid lag, anicteric sclera, pupils equal round reactive to light ENT: Nose and ears atraumatic Neck: No cervical lymphadenopathy, trachea midline, supple Mouth: no lip lesion, mucus membranes moist Cardiovascular: S1S2 reg, no murmur, positive dorsalis pedis pulse bilateral, no edema Lungs: Decreased air entry bilaterally, no rhonchi, no rales, no accessory muscle use Abdominal: soft, nontender to palpation, no guarding Ext: muscle strength 5 out of 5 in all 4 extremities grossly, no gross muscle atrophy, no contractures, right knee bandage covering affected area. Limited flexion of the right kneed. Neuro: CN II-XI grossly intact, no gross focal neuro deficits Psych: Alert, oriented, appropriate affect Data Reveiwed Today: 01/01/2025 Patient Labs: Blood cultures preliminary report- no growth in past 24 hours Stain wound preliminaryfew polymorphonuclear leukocytes, rare epithelial cells, no organisms seen. Aerobic wound culture preliminarymoderate presumptive Staphylococcus aureus. WBC 10.17, NA 141, creatinine 0.79, Hb 12.9. Imaging: X-ray right knee indicates no osseous pathology. Trace suprapatellar joint effusion. Assessment and Plan #Septic prepatellar bursitis of the right knee - Continue vancomycin - Ortho recommended incision and drainage to be performed tomorrow in the OR - Patient will be n.p.o. - ID on consult, appreciate recommendations. - Continue NS 75 cc/h - As needed oral and IV pain medication ordered - Monitor vitals #History of hep C: - Continue Epclusa [id number] daily #Hypocalcemia: - Calcium 9.2 now 8.3 - Continue to monitor F: NS 75 cc/h E: None N: currently N.P.O until after procedure. DVT ppx: SCDs GI ppx: None Code Status: full Fred Marroquin MD PGY1 Internal Medicine Objective - Vital Signs Vital signs: Vital Signs Temp 97.9 F 01/01/25 07:40 Pulse 76 01/01/25 07:40 Resp 16 01/01/25 07:40 BP 143/89 01/01/25 07:40 Pulse Ox 97 01/01/25 07:40 FiO2 Intake & Output 12/31/24 01/01/25 01/01/25 18:59 06:59 18:59 Weight 118.388 kg Other: Voiding Method Toilet # Voids 2 - Labs CBC & Chem 7: 01/01/25 06:17 01/01/25 06:17 Labs: Abnormal Lab Results - Last 24 Hours (Table) 01/01/25 Range/Units 06:17 WBC 10.17 H (4.50-10.00) 10*3/uL RBC 4.08 L (4.40-5.60) 10*6/uL Hgb 12.9 L (13.0-17.0) g/dL Hct 37.4 L (39.6-50.0) % MPV 9.0 L (9.5-12.2) fL Immature Gran # 0.15 H (0.00-0.04) 10*3/uL Microbiology - Last 24 Hours (Table) 12/30/24 21:56 Blood Culture - Preliminary Blood 12/30/24 22:35 Gram Stain - Preliminary Knee - Right Wound Culture - Preliminary Presumptive Staph aureus
[2025-01-01] MEDS: SENNOSIDES-DOCUSATE SODIUM 1 EACH TAB PO SCH (20:53)
[2025-01-02 05:33] LABS: ALT 34 U/L (4-49); AST 25 U/L (17-59); African American GFR (CKD) >90 (>60 ml/min/1.73 sqM); Albumin 3.3 g/dL (3.5-5.0); Albumin/Globulin Ratio 1.0; Alkaline Phosphatase 77 U/L (38-126); Anion Gap 7 mmol/L; Blood Urea Nitrogen 9 mg/dL (9-20); Calcium 8.9 mg/dL (8.4-10.2); Carbon Dioxide 29 mmol/L (22-30); Chloride 102 mmol/L (98-107); Globulin 3.2 g/dL; Glucose 84 mg/dL (74-99); Non-African American GFR(CKD) >90 (>60 ml/min/1.73 sqM); Potassium 4.5 mmol/L (3.5-5.1); Sodium 138 mmol/L (137-145); Total Protein 6.5 g/dL (6.3-8.2)
[2025-01-02 07:54] LABS: Basophils # (A) 0.06 X 10*3/uL (0.00-0.10); Basophils % (A) 0.6 %; Eosinophils # (A) 0.18 X 10*3/uL (0.04-0.35); Eosinophils % (A) 1.9 %; HCT 37.6 % (39.6-50.0); HGB 12.9 g/dL (13.0-17.0); Immature Grans, Automated 1.70 %; Lymphocytes # (A) 1.77 X 10*3/uL (0.90-5.00); Lymphocytes % (A) 18.8 %; MCH 31.5 pg (27.0-32.0); MCHC 34.3 g/dL (32.0-37.0); MCV 91.7 FL (80.0-97.0); Monocytes # (A) 0.68 X 10*3/uL (0.20-1.00); Monocytes % (A) 7.2 %; NRBC Per 100 WBC 0 X 10*3/uL (0.00-0.01); Neutrophils # (A) 6.58 X 10*3/uL (1.80-7.70); Neutrophils % (A) 69.8 %; Platelet Count 233 X 10*3/uL (140-440); RBC 4.10 X 10*6/uL (4.40-5.60); RDW 11.7 % (11.5-14.5); WBC 9.43 X 10*3/uL (4.50-10.00)
--- NOTE | 2025-01-02 10:12 | P.PN ---
Subjective Progress Note Date: 01/02/25 Principal diagnosis: Right knee septic prepatellar bursitis Right knee cellulitis Patient seen and examined this morning. Patient is resting comfortably in bed with right lower extremity elevated on pillows. Ap wrap is intact over the right knee with Hemovac drain present. Informed patient that we may remove dressing and drain later today and reapply a bulky dressing with the Ap wrap. Patient verbalizes understanding. Discussed with Dr. Hong via [employer] treatment of infection, he recommends placement of a midline. This has been ordered. Patient does report that his pain is managed on current regimen. Patient is able to demonstrate flexion extension of the right ankle and foot. Patient is able to lift right lower extremity off the bed. Patient expresses sensation to the right lower extremity to the foot. He denies any needs at this time. No acute concerns. Objective - Vital Signs Vital signs: Vital Signs Temp 97.5 F L 01/02/25 02:00 Pulse 60 01/02/25 02:00 Resp 17 01/02/25 02:00 BP 163/82 01/02/25 02:00 Pulse Ox 99 01/02/25 02:00 FiO2 Intake & Output 01/01/25 01/02/25 01/02/25 18:59 06:59 18:59 Intake Total 1764 Output Total 1010 Balance 754 Weight 118.388 kg Intake: IV 1050 Oral 714 Output: Urine 1000 Estimated Blood Loss 10 Other: # Voids 2 - Exam Right Knee: Inspection: Surgical incision to the right knee, dressing and Ap wrap are clean dry and intact with Hemovac present. Sensation: Sensation is equal, symmetric, bilaterally intact throughout the upper and lower extremities Palpation: Mild to moderate tenderness to palpation over the right knee Range of motion: Patient does have full range of motion bilateral upper and lower extremities on exam, limited range of motion of the right knee due to surgical intervention Motor: Right: hip flexor 5/5, knee flexor 4-/5, ankle dorsiflexor 5/5, ankle plantarflexion 5/5 and extensor hallucis 5/5. Neurovascular: Radial pulse intact, 2+ bilaterally. Cap refill under 3 seconds in digits upper extremities. - Labs CBC & Chem 7: 01/02/25 04:34 01/02/25 04:34 Labs: Abnormal Lab Results - Last 24 Hours (Table) 01/02/25 01/02/25 Range/Units 04:34 04:34 RBC 4.10 L (4.40-5.60) X 10*6/uL Hgb 12.9 L (13.0-17.0) g/dL Hct 37.6 L (39.6-50.0) % MPV 8.8 L (9.5-12.2) FL Immature Gran # 0.16 H (0.00-0.04) X 10*3/uL Albumin 3.3 L (3.5-5.0) g/dL Microbiology - Last 24 Hours (Table) 12/30/24 21:56 Blood Culture - Preliminary Blood 01/01/25 14:18 Gram Stain - Preliminary Knee - Right 01/01/25 14:19 Gram Stain - Preliminary Knee - Right 12/30/24 22:35 Gram Stain - Preliminary Knee - Right Wound Culture - Preliminary Staphylococcus aureus Assessment and Plan Assessment: Postop day 1: Irrigation and debridement of the right knee Plan: -Appreciate underwriting consultant and team management. -Order placed for midline for IV antibiotic therapy per Dr. Hong -Activity: Ambulate QID, OOB all meals, up and about, limit lifting bending twisting to less than 5 lbs. Use walker or cane if needed for stability. -Daily PT/OT, increase ambulation strength and balance. -Pain control: Adequate at this time -Hygiene: Maintain incision clean and dry. -Drains: Maintain for now. Continue to monitor and record output q shift. -Encourage IS 10x/hr -Dispo: Pending placement of midline and recommendations of antibiotic therapy per Dr. Hong patient will be cleared from an orthopedic standpoint for discharge. *I reviewed and discussed this case with my attending Dr. Navarro, whom has reviewed this chart and films and is in agreement with assessment and plan of care as outlined above. I have personally seen and examined the patient, performed the documentation and the assessment and plan as written. Number of minutes spent on the visit: [ ].
[2025-01-02] MEDS: BENZOCAINE/MENTHOL LOZENG 1 EACH LOZENGE MUCOUS MEM PRN (12:13)
--- NOTE | 2025-01-02 13:56 | P.DS ---
Providers Date of admission: 12/30/24 22:45 Attending physician: Isma Crocker MD Consults: 12/30/24 22:43 Consult Physician Urgent Consulting Provider: Jeremy Fonseca Consult Reason/Comments: Septic prepatellar bursitis Do you want consulting provider notified?: Yes, Notify in am 12/31/24 10:07 Consult Physician Routine Consulting Provider: Jennifer Hong Consult Reason/Comments: right knee septic prepatellar bursitis, iv antibiotics Do you want consulting provider notified?: Yes Primary care physician: Donta Cheema Hospital Course: Discharge Diagnosis: 34-year-old male presents with complaints of right knee pain and swelling. 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 States he usually wears kneepads but every now and then he does not because he gets uncomfortable. Reports he went to urgent care approximately 4 days ago received Bactrim and was taking that but did not notice much of a change in the swelling or tenderness of the right knee. Since then days ago he noticed increased swelling consistently every day until yesterday he noticed 2 bumps appear on his knee and his knee became overwhelmingly tender to where he wanted come to the ER for further evaluation. While in the ER patient underwent lab work significant for white count of 17.29, neutrophils of 14.68, sodium 136, CRP 19.8, otherwise lab work within normal limits. Patient also received a right knee x-ray which showed no acute osseous pathology but did show prepatellar/anterior knee soft tissue swelling and trace suprapatellar patellar joint effusion. Orthopedics was consulted and samples were taken from the site and sent for staining and culture, prior to a definitive planned I&D of the site. As inpatient, patient's initial knee cultures showed staph aureaus, for which he was placed on IV Vancomycin by Infection Disease. Patient underwent an uncomplicated I&D. The right knee was washed and sampled. The repeated blood cultures and knee aspirate cultures further confirmed the presence of staph aureus species. Midline placed in left arm for at home IV antibiotics. This is ordered and will be perscribed to the patient by ID. Patient's most recent labs prior to discharge showed white count of 9.43, H12.9, sodium 138, creatinine 0.66. Patient is currently well and will be returning home on 3 days of pain medications. Pateint advised to follow up with his primary care physician. Pt seen and examined at bedside: 01/02/2025 Vital signs reveiwed and stable: Temperature 98.1 F, heart rate 81, respiratory rate 16, BP 157/89, SpO2 99% on room air. General: non toxic, no distress, appears at stated age, normal weight Derm: no unusual rashes/lesions, warm Head: atraumatic, normocephalic, symmetric ENT: Nose and ears atraumatic Neck: No cervical lymphadenopathy, trachea midline, supple Mouth: no lip lesion, mucus membranes moist Cardiovascular: S1S2 reg, no murmur, positive dorsalis pedis pulse bilateral, no edema Lungs: normal air entry bilaterally, no rhonchi, no rales, no accessory muscle use Abdominal: soft, nontender to palpation, no guarding Ext: muscle strength 5 out of 5 in all 4 extremities grossly, no gross muscle atrophy, no contractures, rght knee bandage covering affected area. Limited flexion of the right knee Neuro: CN II-XI grossly intact, no gross focal neuro deficits Psych: Alert, oriented, appropriate affect A total of 30 minutes were spent preparing this complex discarge summary. Patient was discharged on 01/02/2025. Attestation I have seen and examined this patient with my resident , discussed the same with the resident/RADHA, and agree with the dictator's assessment and plan as written Dr. Isma crocker Patient Condition at Discharge: Fair Plan - Discharge Summary Discharge Rx Participant: Yes New Discharge Prescriptions: New ceFAZolin [Kefzol] 3 gm IVP Q8HR #30 each HYDROcodone/APAP 5-325MG [[place] 5-325] 1 each PO Q6HR PRN 3 Days #12 tab PRN Reason: PAIN SCALE 1 TO 5 Continue Sofosbuvir/Velpatasvir [Epclusa 400 mg-100 mg Tablet] 1 tab PO DAILY@1200 Ibuprofen [Motrin Ib] 600 mg PO Q6H PRN PRN Reason: Pain Discontinued Sulfamethox-Tmp 800-160Mg [Bactrim DS 800-160 mg] 1 tab PO Q12HR Discharge Medication List Ibuprofen [Motrin Ib] 600 mg PO Q6H PRN 12/31/24 [History] Sofosbuvir/Velpatasvir [Epclusa 400 mg-100 mg Tablet] 1 tab PO DAILY@1200 12/31/24 [History] HYDROcodone/APAP 5-325MG [[place] 5-325] 1 each PO Q6HR PRN 3 Days #12 tab 01/02/25 [Rx] ceFAZolin [Kefzol] 3 gm IVP Q8HR #30 each 01/02/25 [Rx] Follow up Appointment(s)/Referral(s): Donta Cheema MD [Primary Care Provider] - 1-2 days [facility], [NON-STAFF] - As Needed Infusion Services,[facility] [REFERRING] - As Needed (IV antibiotics and supplies to be delivered to your home this evening.) Jennifer Hong MD [STAFF PHYSICIAN] - 1 Week Jeremy Fonseca MD [STAFF PHYSICIAN] - 2 Weeks Patient Instructions/Handouts: Wound Infection (DC) Activity/Diet/Wound Care/Special Instructions: Orthopedic Discharge Instructions: * Wound care and infection precautions; Keep incision clean and dry, allow soapy water to run over incision, Do not scrub over incision. No lotions, creams, moisturizers. No soaking, pools, hot tubs. May remove dressing when there is no drainage. * Weight bearing as tolerated with walker / crutches until follow-up. * Ice when necessary. Do not exceed 20 minutes per hour with ice pack. No use of Heat Therapy near the surgical area. * Pain meds and anticoagulants per prescription. * Pain medication has potential to cause constipation. Increase oral fluid & fiber intake. Contact primary care provider if you have not had a bowel movement within 48 hours after d/c. * No anti-inflammatory medication until discussed at first post operative visit, this including Motrin, Aleve, Mobic, Diclofenac, [Aspirin]. * Follow up in office at [address] Fonseca. * Follow up with your primary care doctor 7-10 days after discharge. * Contact [facility] with any questions, . Discharge Disposition: HOME SELF-CARE
[2025-01-02 14:49] VITALS: BP 158/87; PULSE 65; RESP 15; TEMP 97.8
--- NOTE | 2025-01-02 15:28 | P.PN ---
Subjective Progress Note Date: 01/01/25 Principal diagnosis: Reason for follow-up with right knee septic prepatellar bursitis Patient is a 34-year-old male with a past medical history significant for chronic hepatitis C presenting to the hospital for the right knee pain and swelling and redness patient to be diagnosed with the right knee septic prepatellar bursitis failing outpatient Bactrim DS therapy. On today's evaluation that is 01/01/2025,the patient denies any fever or any chills, patient is breathing comfortably on room air, the patient denies chest pain shortness of breath and no significant cough, patient denies abdominal pain, no nausea vomiting or diarrhea. Pain to the right knee slightly controlled Patient white count is down to 10.17 creatinine 0.79 Objective - Vital Signs Vital signs: Vital Signs Temp 97.9 F 01/01/25 07:40 Pulse 76 01/01/25 07:40 Resp 16 01/01/25 07:40 BP 143/89 01/01/25 07:40 Pulse Ox 97 01/01/25 07:40 FiO2 Intake & Output 12/31/24 01/01/25 01/01/25 18:59 06:59 18:59 Weight 118.388 kg Other: Voiding Method Toilet # Voids 2 - Exam GENERAL DESCRIPTION: Middle-age male lying in bed in no distress RESPIRATORY SYSTEM: Unlabored breathing , decreased breath sounds at bases HEART: S1 S2 regular rate and rhythm , ABDOMEN: Soft , no tenderness EXTREMITIES: Right knee is currently dressed no drainage on the dressing - Labs CBC & Chem 7: 01/02/25 04:34 01/02/25 04:34 Labs: Abnormal Lab Results - Last 24 Hours (Table) 01/01/25 Range/Units 06:17 WBC 10.17 H (4.50-10.00) 10*3/uL RBC 4.08 L (4.40-5.60) 10*6/uL Hgb 12.9 L (13.0-17.0) g/dL Hct 37.4 L (39.6-50.0) % MPV 9.0 L (9.5-12.2) fL Immature Gran # 0.15 H (0.00-0.04) 10*3/uL Microbiology - Last 24 Hours (Table) 12/30/24 21:56 Blood Culture - Preliminary Blood 12/30/24 22:35 Gram Stain - Preliminary Knee - Right Wound Culture - Preliminary Presumptive Staph aureus Assessment and Plan (1) Leukocytosis Current Visit: Yes Status: Acute Code(s): D72.829 - ELEVATED WHITE BLOOD CELL COUNT, UNSPECIFIED SNOMED Code(s): 228506894 (2) Failure of outpatient treatment Current Visit: Yes Status: Acute Code(s): Z78.9 - OTHER SPECIFIED HEALTH STATUS SNOMED Code(s): 414416874 (3) Septic prepatellar bursitis Current Visit: Yes Status: Acute Code(s): M71.169 - OTHER INFECTIVE BURSITIS, UNSPECIFIED KNEE SNOMED Code(s): 20213770 Plan: 1patient presented hospital with right knee pain swelling and redness and drainage in this patient has been diagnosed with a septic right knee prepatellar bursitis likely from gram-positive skin tyler such as Staph aureus failing outpatient Bactrim DS therapy 2-blood culture negative so far and local culture growing Staph aureus sensitivities pending 3-patient has been evaluated by orthopedics planning for I&D and deep culture this afternoon 4-patient is currently being treated with vancomycin pharmacy to dose while waiting for the culture to finalize Question concern answered Dictation was produced using [employer] dictation software. please excuse any grammatical, word or spelling errors. Time with Patient: Less than 30
--- NOTE | 2025-01-02 15:29 | P.PN ---
Subjective Progress Note Date: 01/02/25 Principal diagnosis: Reason for follow-up with right knee septic prepatellar bursitis Patient is a 34-year-old male with a past medical history significant for chronic hepatitis C presenting to the hospital for the right knee pain and swelling and redness patient to be diagnosed with the right knee septic prepatellar bursitis failing outpatient Bactrim DS therapy. Patient is status post I&D debridement of the right knee septic prepatellar bursitis completed on 01/01/2025 On today's evaluation 01/02/2025,the patient remains to be afebrile, patient is on room air not requiring supplemental oxygen and denies any shortness of breath no chest pain or cough.Patient denies having any nausea or vomiting, no abdominal pain and no diarrhea, pain to the right knee is currently controlled. Patient white count normalized to 9.43, creatinine 0.66 culture with MSSA blood culture negative Objective - Vital Signs Vital signs: Vital Signs Temp 98.1 F 01/02/25 08:27 Pulse 81 01/02/25 08:27 Resp 16 01/02/25 08:27 BP 157/89 01/02/25 08:27 Pulse Ox 99 01/02/25 08:27 FiO2 Intake & Output 01/01/25 01/02/25 01/02/25 18:59 06:59 18:59 Intake Total 1764 Output Total 1010 Balance 754 Weight 118.388 kg Intake: IV 1050 Oral 714 Output: Urine 1000 Estimated Blood Loss 10 Other: # Voids 2 - Exam GENERAL DESCRIPTION: Middle-age male lying in bed in no distress RESPIRATORY SYSTEM: Unlabored breathing , decreased breath sounds at bases HEART: S1 S2 regular rate and rhythm , ABDOMEN: Soft , no tenderness EXTREMITIES: Right knee is currently dressed no drainage on the dressing - Labs CBC & Chem 7: 01/02/25 04:34 01/02/25 04:34 Labs: Abnormal Lab Results - Last 24 Hours (Table) 01/02/25 01/02/25 Range/Units 04:34 04:34 RBC 4.10 L (4.40-5.60) X 10*6/uL Hgb 12.9 L (13.0-17.0) g/dL Hct 37.6 L (39.6-50.0) % MPV 8.8 L (9.5-12.2) FL Immature Gran # 0.16 H (0.00-0.04) X 10*3/uL Albumin 3.3 L (3.5-5.0) g/dL Microbiology - Last 24 Hours (Table) 01/01/25 14:19 Gram Stain - Preliminary Knee - Right Wound Culture - Preliminary Presumptive Staph aureus 01/01/25 14:18 Gram Stain - Preliminary Knee - Right Wound Culture - Preliminary Presumptive Staph aureus 12/30/24 21:56 Blood Culture - Preliminary Blood 12/30/24 22:35 Gram Stain - Preliminary Knee - Right Wound Culture - Preliminary Staphylococcus aureus Assessment and Plan (1) Leukocytosis Current Visit: Yes Status: Acute Code(s): D72.829 - ELEVATED WHITE BLOOD CELL COUNT, UNSPECIFIED SNOMED Code(s): 050197482 (2) Failure of outpatient treatment Current Visit: Yes Status: Acute Code(s): Z78.9 - OTHER SPECIFIED HEALTH STATUS SNOMED Code(s): 620574531 (3) Septic prepatellar bursitis Current Visit: Yes Status: Acute Code(s): M71.169 - OTHER INFECTIVE BURSITIS, UNSPECIFIED KNEE SNOMED Code(s): 81683969 Plan: 1patient presented hospital with right knee pain swelling and redness and drainage in this patient has been diagnosed with a septic right knee prepatellar bursitis likely from gram-positive skin tyler such as Staph aureus failing outpatient Bactrim DS therapy 2-blood culture negative so far and local culture growing MSSA 3-patient has been evaluated by orthopedics status post I&D and deep culture, completed on 01/01/2025 4-patient vancomycin has been discontinued started on cefazolin 3 g every 8 hours outpatient IV antibiotic recommended for short course because of his extensive infection we will also give him a dose of Rocephin 2 g daily that will bridge him till tomorrow to get his IV cefazolin Dictation was produced using [employer] dictation software. please excuse any grammatical, word or spelling errors. Time with Patient: Less than 30
== END 2025-01-02 16:40 | disposition home or self-care (01) | DRG 501 ==
LOC: EC 18:15 → 4SSUR 22:45
PROVIDERS: ADMIT Internal Medicine; ATTEND Internal Medicine
PROC: 0MBN0ZZ Excision of Right Knee Bursa and Ligament, Open Approach (ICD-10-PCS; principal; 2025-01-01 13:45)
DX: M71.161 Other infective bursitis, right knee (principal); L03.115 Cellulitis of right lower limb; E83.51 Hypocalcemia; B18.2 Chronic viral hepatitis C; B95.61 Methicillin susceptible Staphylococcus aureus infection as the cause of diseases classified elsewhere; Z79.899 Other long term (current) drug therapy
CPT/HCPCS: 36410; 36415; 76937; 80048; 80053; 80202; 85025; 85652; 86140; 87040; 87070; 87075; 87077; 87186; 87205; 96361; 96365; 96366; 96367; 96375; 96376; 99285